=== PATIENT | male | born 1965 | race African-American/Black ===

== ENCOUNTER 2020-06-04 22:02 | Observation (INO) | payer OTHER ==
[2020-06-04 23:06] LABS: Hematocrit 51.5 % (35.5-45.6); Hemoglobin 17.3 gm/dl (11.8-15.2); Mean Corpuscular HGB Conc 34 % (32-34); Mean Corpuscular Volume 95 fl (84-94); Platelet Count 197 K/mm3 (140-440); Red Cell Distribution Width 13.2 % (13.2-15.2)
[2020-06-04 23:27] LABS: Blood Urea Nitrogen 16 mg/dL (9-20); Calcium 9.2 mg/dL (8.4-10.2); Hemolysis Index 11
[2020-06-04 23:34] LABS: BUN/Creatinine Ratio 23
[2020-06-05] MEDS ORDERED: SODIUM CHLORIDE 0.9% 1000 ML 1,000 ML IV ONE (00:55)
[2020-06-05] MEDS ORDERED: ONDANSETRON 4 MG/2 ML INJ IV ONE (00:55)
--- NOTE | 2020-06-05 00:58 | Emergency Department Report ---
ED N/V/D HPI - General Chief complaint: Nausea/Vomiting/Diarrhea Stated complaint: VOMITING DIARRHEA PUI?: No Time Seen by Provider: 06/05/20 00:54 Source: patient Mode of arrival: Ambulatory Limitations: No Limitations - History of Present Illness Initial comments: Patient is a 55-year-old male that presents emergency room with complaints of nausea, vomiting, diarrhea. Patient states he ate fish today and became acutely ill approximately 4 hours afterwards. Patient states his symptoms been going on for 2 hours. Patient states he feels like his mouth is dry. Patient denies abdominal pain. Patient denies fever and chills. Patient denies headache. Patient denies blurry vision. Patient denies blood in the vomitus. Patient denies blood in his stool. Patient denies recent travel. Patient denies recent international travel. Patient denies exposure to the novel coronavirus. Patient denies sick contacts. Patient denies fever and chills. Patient denies cough. Patient denies coming in contact with anybody with symptoms of the novel coronavirus. MD complaint: nausea, vomiting, diarrhea -: Sudden Description of Vomiting: watery Description of Diarrhea: water Associated Abdominal Pain: No Radiation: none Severity: severe Pain Scale: 0 Consistency: constant Improves with: rest Worsens with: eating, bowel movement Associated Symptoms: nausea/vomiting - Related Data Allergies Allergy/AdvReac Type Severity Reaction Status Date / Time No Known Allergies Allergy Unverified 06/04/20 22:05 ED Review of Systems ROS: Stated complaint: VOMITING DIARRHEA Other details as noted in HPI Constitutional: denies: chills, fever Eyes: denies: eye pain, eye discharge, vision change ENT: denies: ear pain, throat pain Respiratory: denies: cough, shortness of breath, wheezing Cardiovascular: denies: chest pain, palpitations Endocrine: no symptoms reported Gastrointestinal: nausea, vomiting, diarrhea. denies: abdominal pain Genitourinary: denies: urgency, dysuria Musculoskeletal: denies: back pain, joint swelling, arthralgia Skin: denies: rash, lesions Neurological: denies: headache, weakness, paresthesias Psychiatric: denies: anxiety, depression Hematological/Lymphatic: denies: easy bleeding, easy bruising ED Past Medical Hx - Past Medical History Previous Medical History?: No - Surgical History Past Surgical History?: Yes Additional Surgical History: ear - Family History Family history: no significant - Social History Smoking Status: Current Every Day Smoker Substance Use Type: Alcohol ED Physical Exam - General Limitations: No Limitations General appearance: alert, in no apparent distress - Head Head exam: Present: atraumatic, normocephalic - Eye Eye exam: Present: normal appearance - ENT ENT exam: Present: mucous membranes dry - Neck Neck exam: Present: normal inspection - Respiratory Respiratory exam: Present: normal lung sounds bilaterally. Absent: respiratory distress - Cardiovascular Cardiovascular Exam: Present: regular rate, normal rhythm. Absent: systolic murmur, diastolic murmur, rubs, gallop - GI/Abdominal GI/Abdominal exam: Present: soft, normal bowel sounds - Rectal Rectal exam: Present: deferred - Extremities Exam Extremities exam: Present: normal inspection - Back Exam Back exam: Present: normal inspection - Neurological Exam Neurological exam: Present: alert, oriented X3 - Psychiatric Psychiatric exam: Present: normal affect, normal mood - Skin Skin exam: Present: warm, dry, intact, normal color. Absent: rash ED Course Vital Signs 06/04/20 06/05/20 06/05/20 22:08 01:00 01:30 Temperature 97.9 F Pulse Rate 95 H 78 71 Respiratory 18 25 H 26 H Rate Blood Pressure 117/83 117/74 Blood Pressure 122/93 [Right] O2 Sat by Pulse 99 95 Oximetry 06/05/20 06/05/20 02:00 02:30 Temperature Pulse Rate 76 74 Respiratory 25 H 23 Rate Blood Pressure 114/74 106/78 Blood Pressure [Right] O2 Sat by Pulse 98 96 Oximetry - Reevaluation(s) Reevaluation #1: Patient states he is feeling better. Patient denies nausea vomiting at this time. CT is pending. 06/05/20 02:16 Reevaluation #2: Patient states she is feeling better. 06/05/20 03:05 Reevaluation #3: I discussed all results with patient. I discussed plan of care with patient. Patient agrees with plan of care and admission. Patient to be admitted to the hospitalist service. 06/05/20 03:28 - Consultations Consultation #1: I discussed case with general surgery, Dr. Fuentes. Dr. Fuentes states admit the patient to the hospital service and will see him in the morning. 06/05/20 03:23 Consultation #2: Hospitalist consulted for admission. Hospitalist to admit patient. 06/05/20 03:26 ED Medical Decision Making - Lab Data Result diagrams: 06/04/20 22:41 06/04/20 22:41 - Radiology Data Radiology results: report reviewed CT ABDOMEN AND PELVIS WITH IV CONTRAST INDICATION: Nausea, vomiting and diarrhea TECHNIQUE: Following the administration of intravenous contrast, multiple axial CT images of the abdomen and pelvis were acquired. Sagittal and coronal reformats were obtained. All CT performed at this facility utilize dose reduction techniques including automated exposure control, iterative reconstruction and weight based dosing when appropriate to reduce patient radiation dose to as low as reasonably achievable. COMPARISON: None FINDINGS: Limited imaging of the bilateral lung bases demonstrates no acute abnormality. ABDOMEN: There is suspected mild thickening and enhancement of the gallbladder wall. No pericholecystic fluid is identified. The liver, stomach, pancreas, spleen, bilateral adrenal glands and bilateral kidneys show no evidence of acute abnormality. Bilateral renal cysts are noted. The abdominal aorta is normal in caliber. There is no evidence of bowel obstruction or free fluid. The appendix is not clearly identified, but no focal pericecal inflammatory changes are seen. PELVIS: No free fluid is seen within the pelvis. The urinary bladder appears normal. BONES AND SOFT TISSUES: No acute bony abnormality is visualized. Soft tissue structures appear grossly normal. IMPRESSION: 1. Possible mild wall thickening and enhancement of the gallbladder wall. Please correlate with patient's clinical symptoms and laboratory values to assess for possible mild cholecystitis. 2. Bilateral renal cysts. - Medical Decision Making Patient is a 55-year-old male that presents emergency room with nausea, vomiting, diarrhea. Patient given fluids and Zofran. Patient symptoms improved. Patient had labs done which showed a elevated WBC. Because the WBC was 17,000, the patient had a CT scan of the abdomen. Patient CT scan of the abdomen shows a possible early cholecystitis. I discussed the case with general surgery general surgery recommends admission and he will see the patient in morning. Patient admitted to the hospital service for further evaluation treatment. - Differential Diagnosis Diarrhea, nausea, vomiting, gastroenteritis, food toxicity, Critical Care Time: Yes Critical care time in (mins) excluding proc time.: 35 Critical care attestation.: If time is entered above; I have spent that time in minutes in the direct care of this critically ill patient, excluding procedure time. Critical Care Time: 35 minutes. ED Disposition Clinical Impression: Nausea, vomiting and diarrhea, Cholecystitis Disposition: OP ADMIT IP TO THIS HOSP Is pt being admited?: Yes Does the pt Need Aspirin: No Condition: Critical Time of Disposition: 03:36
[2020-06-05 01:04] LABS: Alanine Aminotransferase 21 units/L (7-56); Albumin 4.2 g/dL (3.9-5)
[2020-06-05 01:47] LABS: Bilirubin,Direct < 0.2 mg/dL (0-0.2)
--- NOTE | 2020-06-05 03:16 | Cat Scan Report ---
CT ABDOMEN AND PELVIS WITH IV CONTRAST INDICATION: Nausea, vomiting and diarrhea TECHNIQUE: Following the administration of intravenous contrast, multiple axial CT images of the abdo men and pelvis were acquired. Sagittal and coronal reformats were obtained. All CT performed at this facility utilize dose reduction techniques including automated exposure control, iterative reconstru ction and weight based dosing when appropriate to reduce patient radiation dose to as low as reasonab ly achievable. COMPARISON: None FINDINGS: Limited imaging of the bilateral lung bases demonstrates no acute abnormality. ABDOMEN: There is suspected mild thickening and enhancement of the gallbladder wall. No pericholecystic fluid is identified. The liver, stomach, pancreas, spleen, bilateral adrenal glands and bilateral kidneys s how no evidence of acute abnormality. Bilateral renal cysts are noted. The abdominal aorta is normal in caliber. There is no evidence of bowel obstruction or free fluid. The appendix is not clearly iden tified, but no focal pericecal inflammatory changes are seen. PELVIS: No free fluid is seen within the pelvis. The urinary bladder appears normal. BONES AND SOFT TISSUES: No acute bony abnormality is visualized. Soft tissue structures appear grossl y normal. IMPRESSION: 1. Possible mild wall thickening and enhancement of the gallbladder wall. Please correlate with patie nt's clinical symptoms and laboratory values to assess for possible mild cholecystitis. 2. Bilateral renal cysts. Signer Name: Tricia Dorado MD Signed: 06/05/2020 3:12 AM Workstation Name: [id number]
[2020-06-05 03:57] LABS: Band Neutrophils # (Manual) 0.4 K/mm3; Total Cells Counted 100
[2020-06-05] MEDS ORDERED: ONDANSETRON 4 MG/2 ML INJ IV PRN (03:57)
[2020-06-05] MEDS ORDERED: DOCUSATE SODIUM 100 MG CAP PO PRN (03:57)
[2020-06-05] MEDS ORDERED: ACETAMINOPHEN 325 MG TAB PO PRN (03:57)
[2020-06-05 03:58] LABS: Platelet Estimate Consistent w Auto; RBC Morphology Normal
[2020-06-05] MEDS ORDERED: SODIUM CHLORIDE 0.9% 1000 ML 1,000 ML IV SCH (04:00)
[2020-06-05] MEDS ORDERED: hydrALAZINE 20 MG/1 ML INJ IV PRN (04:03)
[2020-06-05] MEDS: PIPERACILLIN/TAZOBACTAM 3.375 3.375 GM/50 ML BAG IV SCH ×3 (04:29→22:06)
--- NOTE | 2020-06-05 05:27 | History and Physical Report ---
History of Present Illness Date of examination: 06/05/20 Date of admission: 06/05/20 03:36 Chief complaint: nausea Vomiting Abdominal pain and diarrhea History of present illness: Patient is a 55-year-old male seen at bedside in ED. He came with chief complaints nausea, vomiting, diarrhea, abdominal pain. Patient reports his symptoms started after eating fish. On assessment, Patient admits alcohol and tobacco use and feeling nauseous. He denies illicit drug use and abdominal pain. Patient also denies fever and chills and headache. Patient denies blurry vision . Reviewed lb, mar, and vital signs. ED Work up shows; WBC 17.7, hemoglobin 17.3, sodium 142, potassium 3.[address] of the abdomen/pelvis-showed: 1. Possible mild wall thickening and enhancement of the gallbladder wall- possible mild cholecystitis 2. Bilateral renal cysts. Past History Past Medical History: No medical history Past Surgical History: No surgical history Social history: smoking, alcohol abuse Medications and Allergies Allergies Allergy/AdvReac Type Severity Reaction Status Date / Time No Known Allergies Allergy Unverified 06/04/20 22:05 Active Meds: Active Medications Acetaminophen (Acetaminophen 325 Mg Tab) 650 mg PO Q4H PRN PRN Reason: Pain MILD(1-3)/Fever >100.5/WHITNEY Docusate Sodium (Docusate Sodium 100 Mg Cap) 100 mg PO BID PRN PRN Reason: Constipation Enoxaparin Sodium (Enoxaparin 40 Mg/0.4 Ml Inj) 40 mg SUB-Q QDAY LUPE; Protocol Famotidine (Famotidine 20 Mg/2 Ml Inj) 20 mg IV BID [facility] Hydralazine HCl (Hydralazine 20 Mg/1 Ml Inj) 5 mg IV Q4H PRN PRN Reason: Hypertension Sodium Chloride (Nacl 0.9% 1000 Ml) 1,000 mls @ 100 mls/hr IV DIRECT LUPE Piperacillin Sod/Tazobactam Sod (Zosyn/Ns 3.375gm/50ml) 3.375 gm in 50 mls @ 100 mls/hr IV Q8HR LUPE; Protocol Last Admin: 06/05/20 04:29 Dose: 100 mls/hr Documented by: Metoclopramide HCl (Metoclopramide 10 Mg/2 Ml Inj) 5 mg IV ACHS [facility] Ondansetron HCl (Ondansetron 4 Mg/2 Ml Inj) 4 mg IV Q8H PRN PRN Reason: Nausea And Vomiting Sodium Chloride (Sodium Chloride 0.9% 10 Ml Flush Syringe) 10 ml IV BID LUPE Sodium Chloride (Sodium Chloride 0.9% 10 Ml Flush Syringe) 10 ml IV PRN PRN PRN Reason: LINE FLUSH Review of Systems Constitutional: poor appetite, other (abdominal pain) Ears, nose, mouth and throat: no epistaxis Cardiovascular: no edema, no claudication Respiratory: no wheezing, no pleurisy Gastrointestinal: abdominal pain, nausea, vomiting, diarrhea Genitourinary Male: no hematuria Rectal: no pain Musculoskeletal: no neck stiffness Integumentary: no redness, no wounds Neurological: parathesias, no transient paralysis Psychiatric: anxiety Endocrine: no thyroid mass Hematologic/Lymphatic: no easy bruising Allergic/Immunologic: no anaphylaxis Exam - Constitutional Vitals: Temp Pulse Resp BP Pulse Ox 97.9 F 60 23 115/76 97 06/04/20 22:08 06/05/20 05:00 06/05/20 05:00 06/05/20 05:00 06/05/20 05:00 General appearance: Present: mild distress, well-nourished - EENT Eyes: Present: PERRL ENT: hearing intact, clear oral mucosa - Neck Neck: Present: supple, normal ROM. Absent: rigidity - Respiratory Respiratory effort: normal Respiratory: bilateral: CTA - Cardiovascular Heart rate: 60 Heart Sounds: Present: S1 & S2. Absent: rub, click - Extremities Extremities: pulses symmetrical, No edema Peripheral Pulses: within normal limits - Abdominal General gastrointestinal: Present: soft, tender, non-distended, normal bowel sounds Localized gastrointestinal: tender: RLQ, LLQ Male genitourinary: Present: normal - Integumentary Integumentary: Present: clear, warm, dry - Musculoskeletal Musculoskeletal: gait normal, strength equal bilaterally - Psychiatric Psychiatric: appropriate mood/affect, intact judgment & insight - Neurologic Neurologic: CNII-XII intact, moves all extremities - Allied Health Allied health notes reviewed: nursing Results - Labs CBC & Chem 7: 06/04/20 22:41 06/04/20 22:41 Labs: Abnormal lab results 06/04/20 06/04/20 Range/Units 22:41 22:41 WBC 17.7 H (4.5-11.0) K/mm3 RBC 5.40 H (3.65-5.03) M/mm3 Hgb 17.3 H (11.8-15.2) gm/dl Hct 51.5 H (35.5-45.6) % MCV 95 H (84-94) fl Seg Neuts % (Manual) 86.0 H (40.0-70.0) % Lymphocytes % (Manual) 9.0 L (13.4-35.0) % Seg Neutrophils # Man 15.2 H (1.8-7.7) K/mm3 Creatinine 0.7 L (0.8-1.3) mg/dL Assessment and Plan - Patient Problems (1) Cholecystitis Current Visit: Yes Status: Acute Plan to address problem: General surgeon consult Pain management PRN (2) Nausea, vomiting and diarrhea Current Visit: Yes Status: Acute Plan to address problem: Continue anti-emetic Keep NPO and Continue IV hydration (3) Leukocytosis (leucocytosis) Current Visit: Yes Status: Acute Plan to address problem: ? [id number] infection-CT of the abdomen-positive for cholycystitis Blood culture-follow up with result urinalysis ordered Empiric abx with zosyn-general surgeon consulted (4) Polycythemia Current Visit: Yes Status: Acute Plan to address problem: ? cause-tobacco use/COPD Monitor H/H-antipletelet with low dose ASA patient advised to quit tobacco use Will monitor blood pressure level (5) Tobacco abuse Current Visit: Yes Status: Acute Plan to address problem: Patient admits tobacco use Discussed tobacco use cessation Cardiovascular and neoplasm syndrome of tobacco use explained to patient (6) DVT prophylaxis Current Visit: Yes Status: Acute Plan to address problem: Lovenox
[2020-06-05] MEDS: METOCLOPRAMIDE 10 MG/2 ML INJ IV SCH ×4 (07:36→22:06)
[2020-06-05] MEDS ORDERED: ASPIRIN EC 81 MG TAB PO SCH (10:00)
[2020-06-05] MEDS ORDERED: ENOXAPARIN 40 MG/0.4 ML INJ SUB-Q SCH (10:00)
[2020-06-05] MEDS ORDERED: FAMOTIDINE 20 MG/2 ML INJ IV SCH (10:00)
[2020-06-05] MEDS: FAMOTIDINE 20 MG/2 ML INJ IV SCH ×2 (10:02→22:06)
--- NOTE | 2020-06-05 10:09 | Ultrasound Report ---
LIMITED RUQ ABDOMINAL ULTRASOUND INDICATION: ABD PAIN. COMPARISON: CT abdomen pelvis performed earlier today. FINDINGS: Pancreas: Visualized portions show no significant abnormality. Abdominal Aorta: No significant abnormality. IVC: No significant abnormality. Liver: The liver measures 12.8 cm in length. No significant abnormality. Normal hepatopedal blood fl ow in the main portal vein. Gallbladder: The gallbladder is normal size and contour with no evidence for stones or sludge. The ga llbladder wall is borderline thickened measuring 3.1 mm.. Bile ducts: No significant abnormality. Common bile duct measures 2.3 mm. Right kidney: No significant abnormality visualized. Free fluid: None. Additional Findings: None. IMPRESSION: No acute abnormality is appreciated. No evidence for cholelithiasis or biliary dilatation. Signer Name: Chuy Lea Jr, MD Signed: 06/05/2020 10:05 AM Workstation Name: [id number]
--- NOTE | 2020-06-05 14:52 | Consultation ---
History of Present Illness Consult date: 06/05/20 Reason for consult: abdominal pain - History of present illness History of present illness: 55 yo male with abd pain (upper abd) assoc with n/v/diarrhea for one day following meal of oysters cooked at home. CT last night with vague single GB abnormality (thickened wall but no fluid/stones. I ordered u/s today which is normal-- no stones, mild thick wall, no fluid No hx GI dz; no one else ate oysters at same time No hx sick contacts/Covid risk/etc Pt feels "perfectly normal" right now and wants to go home. Past History Past Medical History: No medical history Past Surgical History: No surgical history Social history: smoking, alcohol abuse Medications and Allergies Allergies Allergy/AdvReac Type Severity Reaction Status Date / Time No Known Allergies Allergy Unverified 06/04/20 22:05 Active Meds: Active Medications Acetaminophen (Acetaminophen 325 Mg Tab) 650 mg PO Q4H PRN PRN Reason: Pain MILD(1-3)/Fever >100.5/WHITNEY Docusate Sodium (Docusate Sodium 100 Mg Cap) 100 mg PO BID PRN PRN Reason: Constipation Famotidine (Famotidine 20 Mg/2 Ml Inj) 20 mg IV BID [facility] Last Admin: 06/05/20 10:02 Dose: 20 mg Documented by: Hydralazine HCl (Hydralazine 20 Mg/1 Ml Inj) 5 mg IV Q4H PRN PRN Reason: Hypertension Sodium Chloride (Nacl 0.9% 1000 Ml) 1,000 mls @ 100 mls/hr IV DIRECT LUPE Piperacillin Sod/Tazobactam Sod (Zosyn/Ns 3.375gm/50ml) 3.375 gm in 50 mls @ 100 mls/hr IV Q8HR [facility]; Protocol Last Admin: 06/05/20 13:46 Dose: 100 mls/hr Documented by: Metoclopramide HCl (Metoclopramide 10 Mg/2 Ml Inj) 5 mg IV ACHS [facility] [place] Last Admin: 06/05/20 13:44 Dose: 5 mg Documented by: Ondansetron HCl (Ondansetron 4 Mg/2 Ml Inj) 4 mg IV Q8H PRN PRN Reason: Nausea And Vomiting Sodium Chloride (Sodium Chloride 0.9% 10 Ml Flush Syringe) 10 ml IV BID [facility] [place] Last Admin: 06/05/20 10:02 Dose: 10 ml Documented by: Sodium Chloride (Sodium Chloride 0.9% 10 Ml Flush Syringe) 10 ml IV PRN PRN PRN Reason: LINE FLUSH Exam Vital Signs Temp Pulse Resp BP Pulse Ox 97.9 F 95 H 18 122/93 99 06/04/20 22:08 06/04/20 22:08 06/04/20 22:08 06/04/20 22:08 06/04/20 22:08 - General physical appearance Positive: well developed, well nourished, no distress - Abdomen Abdomen: Present: soft, bowel sounds normal. Absent: tender, distended, masses, rebound, guarding, rigid, wound, surgical scars Results - Labs 06/04/20 22:41 06/04/20 22:41 Abnormal lab results 06/04/20 06/04/20 Range/Units 22:41 22:41 WBC 17.7 H (4.5-11.0) K/mm3 RBC 5.40 H (3.65-5.03) M/mm3 Hgb 17.3 H (11.8-15.2) gm/dl Hct 51.5 H (35.5-45.6) % MCV 95 H (84-94) fl Seg Neuts % (Manual) 86.0 H (40.0-70.0) % Lymphocytes % (Manual) 9.0 L (13.4-35.0) % Seg Neutrophils # Man 15.2 H (1.8-7.7) K/mm3 Creatinine 0.7 L (0.8-1.3) mg/dL Diabetes panel 06/04/20 06/04/20 Range/Units 22:41 22:41 Sodium 142 (137-145) mmol/L Potassium 3.9 (3.6-5.0) mmol/L Chloride 103.6 (98-107) mmol/L Carbon Dioxide 24 (22-30) mmol/L BUN 16 (9-20) mg/dL Creatinine 0.7 L (0.8-1.3) mg/dL Glucose 92 (75-100) mg/dL Calcium 9.2 (8.4-10.2) mg/dL AST 29 (5-40) units/L ALT 21 (7-56) units/L Alkaline Phosphatase 53 (35-129) units/L Total Protein 7.1 (6.3-8.2) g/dL Albumin 4.2 (3.9-5) g/dL Calcium panel 06/04/20 06/04/20 Range/Units 22:41 22:41 Calcium 9.2 (8.4-10.2) mg/dL Albumin 4.2 (3.9-5) g/dL Pituitary panel 06/04/20 Range/Units 22:41 Sodium 142 (137-145) mmol/L Potassium 3.9 (3.6-5.0) mmol/L Chloride 103.6 (98-107) mmol/L Carbon Dioxide 24 (22-30) mmol/L BUN 16 (9-20) mg/dL Creatinine 0.7 L (0.8-1.3) mg/dL Glucose 92 (75-100) mg/dL Calcium 9.2 (8.4-10.2) mg/dL Adrenal panel 06/04/20 06/04/20 Range/Units 22:41 22:41 Sodium 142 (137-145) mmol/L Potassium 3.9 (3.6-5.0) mmol/L Chloride 103.6 (98-107) mmol/L Carbon Dioxide 24 (22-30) mmol/L BUN 16 (9-20) mg/dL Creatinine 0.7 L (0.8-1.3) mg/dL Glucose 92 (75-100) mg/dL Calcium 9.2 (8.4-10.2) mg/dL Total Bilirubin 0.20 (0.1-1.2) mg/dL AST 29 (5-40) units/L ALT 21 (7-56) units/L Alkaline Phosphatase 53 (35-129) units/L Total Protein 7.1 (6.3-8.2) g/dL Albumin 4.2 (3.9-5) g/dL Assessment and Plan Abdominal pain/nausea/vomiting/diarrhea/leukocytosis--- unclear etiology but unlikely acute cholecystitis in light of u/s result. Rec GI consult (ordered- Rn aware to call them). Possibly gastroenteritis/food poisoning/etc. Could check HIDA if pt has recurrent pain in epig/RUQ. Start clears- adv to reg tomorrow if tolerating. Monitor WBC No evid surgical disease at this time.
--- NOTE | 2020-06-05 19:09 | Event Note ---
Date: 06/05/20 Patient was admitted early this morning with nausea vomiting abdominal pain CT abdomen questionable cholecystitis, surgery Dr. Fuentes evaluated the patient patient symptoms completely resolved Abdominal ultrasound, no gallbladder abnormality, surgeon does not feel that patient has gallbladder disease Advised to advance diet as tolerated, he discussed with GI for consultation We will closely monitor the patient overnight, and discharge tomorrow if stable
[2020-06-06 05:23] LABS: Basophils % (Auto) 0.4 % (0.0-1.8); Eosinophils # (Auto) 0.4 K/mm3 (0.0-0.4); Eosinophils % (Auto) 5.4 % (0.0-4.3); Hematocrit 41.3 % (35.5-45.6); Hemoglobin 14.1 gm/dl (11.8-15.2); Lymphocytes # (Auto) 2.1 K/mm3 (1.2-5.4); Lymphocytes % (Auto) 31.8 % (13.4-35.0); Mean Corpuscular HGB Conc 34 % (32-34); Mean Corpuscular Volume 95 fl (84-94); Monocytes # (Auto) 0.4 K/mm3 (0.0-0.8); Monocytes % (Auto) 6.1 % (0.0-7.3); Platelet Count 161 K/mm3 (140-440); Red Blood Count 4.37 M/mm3 (3.65-5.03); Red Cell Distribution Width 13.2 % (13.2-15.2)
[2020-06-06] MEDS: PIPERACILLIN/TAZOBACTAM 3.375 3.375 GM/50 ML BAG IV SCH (06:30)
[2020-06-06] MEDS: METOCLOPRAMIDE 10 MG/2 ML INJ IV SCH ×2 (07:34→11:08)
--- NOTE | 2020-06-06 10:47 | Consultation ---
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 He was well until he ate live oysters. Several hours later, he developed nausea, vomiting, and diarrhea. Symptoms lasted several hours and have resolved. He denies any prior similar symptoms. Bowel movements are usually regular on a daily basis. He denies GI bleeding. He denies any abdominal pain. Here, patient had a CT scan which showed mild edema of the gallbladder and surgical consult was performed which showed a normal gallbladder ultrasound. Patient is on no medications, and they were reviewed. Past History Past Medical History: No medical history Past Surgical History: No surgical history Social history: smoking (7 cigarettes/d), alcohol abuse (occ beer) Family history: no significant family history Medications and Allergies Allergies Allergy/AdvReac Type Severity Reaction Status Date / Time No Known Allergies Allergy Unverified 06/04/20 22:05 Active Meds: Active Medications Acetaminophen (Acetaminophen 325 Mg Tab) 650 mg PO Q4H PRN PRN Reason: Pain MILD(1-3)/Fever >100.5/WHITNEY Docusate Sodium (Docusate Sodium 100 Mg Cap) 100 mg PO BID PRN PRN Reason: Constipation Famotidine (Famotidine 20 Mg/2 Ml Inj) 20 mg IV BID [facility] Last Admin: 06/05/20 22:06 Dose: 20 mg Documented by: Hydralazine HCl (Hydralazine 20 Mg/1 Ml Inj) 5 mg IV Q4H PRN PRN Reason: Hypertension Metoclopramide HCl (Metoclopramide 10 Mg/2 Ml Inj) 5 mg IV ACHS [facility] Last Admin: 06/06/20 07:34 Dose: 5 mg Documented by: Ondansetron HCl (Ondansetron 4 Mg/2 Ml Inj) 4 mg IV Q8H PRN PRN Reason: Nausea And Vomiting Sodium Chloride (Sodium Chloride 0.9% 10 Ml Flush Syringe) 10 ml IV BID [facility] Last Admin: 06/06/20 10:10 Dose: 10 ml Documented by: Sodium Chloride (Sodium Chloride 0.9% 10 Ml Flush Syringe) 10 ml IV PRN PRN PRN Reason: LINE FLUSH Last Admin: 06/05/20 22:06 Dose: 10 ml Documented by: Review of Systems All systems: negative (as noted in HPI) Exam - Constitutional Vitals: Temp Pulse Resp BP Pulse Ox 98 F 55 L 17 122/73 96 06/06/20 07:43 06/06/20 09:00 06/06/20 09:00 06/06/20 09:00 06/06/20 09:00 General appearance: Present: no acute distress - EENT Eyes: Present: PERRL, EOM intact ENT: hearing intact - Respiratory Respiratory effort: normal Respiratory: bilateral: CTA - Cardiovascular Rhythm: regular Heart Sounds: Present: S1 & S2 - Extremities Extremities: No edema - Abdominal General gastrointestinal: Present: soft, non-tender Results - Labs CBC & Chem 7: 06/06/20 04:56 06/04/20 22:41 Labs: Abnormal lab results 06/06/20 Range/Units 04:56 MCV 95 H (84-94) fl Eos % (Auto) 5.4 H (0.0-4.3) % - Imaging and Cardiology CT scan - abdomen: report reviewed Assessment and Plan 1. N/V/D -most consistent with food poisoning. Symptoms resolved. No further GI evaluation warranted. Patient is currently tolerating diet well. - okay to discharge from GI standpoint.
[2020-06-06] MEDS: FAMOTIDINE 20 MG/2 ML INJ IV SCH (11:00)
--- NOTE | 2020-06-06 12:47 | Discharge Summary ---
Providers - Providers Date of Admission: 06/05/20 03:36 Date of discharge: 06/06/20 Attending physician: BART COYLE 06/05/20 03:37 Consult to Physician [CONS] Routine Comment: Dr. Loyd spoke with Dr. Carrasquillo @ [phone] Consulting Provider: DEJA CARRASQUILLO Physician Instructions: Reason For Exam: osvaldo Primary care physician: BAR ASSISTANT Hospitalization Condition: Stable Hospital course: --Acute gastroenteritis /probably secondary to food poisoning Current Visit: Yes Status: Acute Plan to address problem: Resolved --? Cholecystitis Current Visit: Yes Status: Acute Plan to address problem: General surgeon and GI evaluated No evidence of acute cholecystitis --Leukocytosis (leucocytosis) Current Visit: Yes Status: Acute Plan to address problem: Resolved --Polycythemia Current Visit: Yes Status: Acute Plan to address problem: Improved --Tobacco abuse Current Visit: Yes Status: Acute Plan to address problem: Smoking cessation Nicotine patch if needed --DVT prophylaxis Current Visit: Yes Status: Acute Plan to address problem: Received Lovenox during hospital stay Disposition: DC-01 TO HOME OR SELFCARE Time spent for discharge: 32min Core Measure Documentation - Palliative Care Palliative Care/ Comfort Measures: Not Applicable - Core Measures Any of the following diagnoses?: none Exam - Constitutional Vitals: Temp Pulse Resp BP Pulse Ox 98 F 63 21 117/75 96 06/06/20 07:43 06/06/20 12:00 06/06/20 12:00 06/06/20 12:00 06/06/20 12:00 General appearance: Present: no acute distress, well-nourished - EENT Eyes: Present: PERRL, EOM intact - Neck Neck: Present: supple, normal ROM - Respiratory Respiratory effort: normal Respiratory: bilateral: diminished, negative: rales, rhonchi, wheezing - Cardiovascular Rhythm: regular Heart Sounds: Present: S1 & S2 - Extremities Extremities: no ischemia, No edema - Abdominal General gastrointestinal: Present: soft, non-tender, non-distended, normal bowel sounds - Integumentary Integumentary: Present: clear, warm - Musculoskeletal Musculoskeletal: strength equal bilaterally - Psychiatric Psychiatric: appropriate mood/affect, cooperative - Neurologic Neurologic: moves all extremities Plan Activity: no restrictions Diet: regular Special Instructions: smoking cessation Additional Instructions: If you have worsening symptoms contact MD or go to emergency room. Diet as tolerated. Advised smoking cessation Follow up with: PRIMARY CARE,MD [Primary Care Provider] - 7 Days Prescriptions: Pantoprazole [Protonix TAB] 20 mg PO QDAY #10 tablet. Ondansetron [Zofran ODT TAB] 8 mg PO Q8HR PRN #15 tab.rapdis PRN Reason: Nausea And Vomiting
--- NOTE | 2020-06-06 14:08 | Progress Note ---
Assessment and Plan d/w Dr James of GI-- pt ok to go home; d/c summary in chart by hospitalist Subjective Date of service: 06/06/20 Patient Reports: Positive: no new complaints Objective Vital Signs - 12hr 06/06/20 06/06/20 06/06/20 02:49 02:50 06:32 Temperature Pulse Rate 65 56 L Respiratory 17 16 Rate Blood Pressure 132/92 119/69 Blood Pressure 132/92 119/59 [Right] O2 Sat by Pulse 85 98 98 Oximetry 06/06/20 06/06/20 06/06/20 07:35 07:43 08:00 Temperature 98 F Pulse Rate 60 56 L Respiratory 18 20 Rate Blood Pressure 116/70 Blood Pressure 133/69 [Right] O2 Sat by Pulse 85 96 95 Oximetry 06/06/20 06/06/20 06/06/20 08:30 09:00 09:30 Temperature Pulse Rate 60 55 L 67 Respiratory 18 17 16 Rate Blood Pressure 116/70 122/73 116/70 Blood Pressure [Right] O2 Sat by Pulse 97 96 96 Oximetry 06/06/20 06/06/20 06/06/20 10:00 10:34 11:00 Temperature Pulse Rate 60 Respiratory 16 Rate Blood Pressure 116/70 122/73 107/70 Blood Pressure [Right] O2 Sat by Pulse 97 63 L 96 Oximetry 06/06/20 06/06/20 06/06/20 11:30 12:00 12:30 Temperature Pulse Rate 56 L 63 54 L Respiratory 17 21 18 Rate Blood Pressure 107/70 117/75 117/75 Blood Pressure [Right] O2 Sat by Pulse 96 96 97 Oximetry 06/06/20 13:02 Temperature Pulse Rate Respiratory Rate Blood Pressure 117/75 Blood Pressure [Right] O2 Sat by Pulse 97 Oximetry - Labs 06/06/20 04:56 06/04/20 22:41
[2020-06-06 14:53] VITALS: BP 113/73
== END 2020-06-06 12:50 | disposition home or self-care (01) ==
LOC: ED 22:02 → 3A 06-05 03:36
PROVIDERS: ADMIT Internal Medicine Geriatric Medicine; ATTEND Internal Medicine
DX: K81.9 Cholecystitis, unspecified (principal); K52.9 Noninfective gastroenteritis and colitis, unspecified; D72.829 Elevated white blood cell count, unspecified; D75.1 Secondary polycythemia; F17.210 Nicotine dependence, cigarettes, uncomplicated
CPT/HCPCS: 36415; 74177; 76705; 80048; 80076; 83690; 85007; 85025; 85027; 96361; 96365; 96366; 96375; 96376; 99291; G0378; J2405; J2543; J2765; J7030; Q9967

== ENCOUNTER 2021-08-24 01:40 | Emergency (ER) | payer OTHER ==
[2021-08-24] MEDS ORDERED: FAMOTIDINE 20 MG/2 ML INJ IV ONE (02:42)
[2021-08-24] MEDS ORDERED: SODIUM CHLORIDE 0.9% 1000 ML 1,000 ML IV ONE (02:42)
[2021-08-24] MEDS ORDERED: ONDANSETRON 4 MG/2 ML INJ IV ONE ×2 (02:42→03:51)
[2021-08-24 03:21] LABS: Alanine Aminotransferase 18 units/L (7-56); Albumin 4.5 g/dL (3.9-5); BUN/Creatinine Ratio 20; Blood Urea Nitrogen 16 mg/dL (9-20); Calcium 8.9 mg/dL (8.4-10.2); Hemolysis Index 9
[2021-08-24 03:41] LABS: Hemoglobin 17.3 gm/dl (11.8-15.2); Mean Corpuscular HGB Conc 33 % (32-34); Mean Corpuscular Volume 95 fl (84-94); Platelet Count 197 K/mm3 (140-440); Red Blood Count 5.58 M/mm3 (3.65-5.03); Red Cell Distribution Width 13.6 % (13.2-15.2)
[2021-08-24] MEDS ORDERED: MORPHINE 4 MG/1 ML INJ IV ONE (03:51)
[2021-08-24 04:19] LABS: RBC Morphology Normal; Total Cells Counted 100
--- NOTE | 2021-08-24 04:35 | Emergency Department Report ---
ED N/V/D HPI - General Chief complaint: Nausea/Vomiting/Diarrhea Stated complaint: FOOD POISON Source: patient, family Mode of arrival: Ambulatory Limitations: Other - History of Present Illness Initial comments: Patient is a 56-year-old [place] male with history of alcohol abuse who presents to the ED with complaint of acute onset persistent intractable nausea and vomiting with mild epigastric pain after eating dinner with alcohol consumption about 6 hours ago. Patient's family stated that the patient has had multiple vomiting episodes with mild epigastric pain. Patient denies chest pain, shortness of breath, fever, chills, dysuria, urinary frequency and urgency , hematemesis, hemoptysis, cough, sore throat, headache, dizziness or syncope. MD complaint: nausea, vomiting, abdominal pain -: Sudden, hour(s) (6) Description of Vomiting: food contents, watery, bilious Associated Abdominal Pain: Yes (diffuse) Location: diffuse Radiation: none Severity: severe Pain Scale: 5 Quality: cramping, dull Consistency: constant Improves with: none Worsens with: eating, vomiting Context: possible food poisoning Associated Symptoms: denies other symptoms, loss of appetite, malaise, nausea/vomiting. denies: myalgias, chest pain, diaphoresis, fever/chills, headaches, rash, dysuria, shortness of breath, syncope, weakness - Related Data Previous Rx's Medication Instructions Recorded Last Taken Type Ondansetron [Zofran ODT TAB] 8 mg PO Q8HR PRN #15 tab.rapdis 06/06/20 Unknown Rx Pantoprazole [Protonix TAB] 20 mg PO QDAY #10 tablet. 06/06/20 Unknown Rx Dicyclomine [Bentyl] 20 mg PO Q6H PRN #30 tablet 08/24/21 Unknown Rx Famotidine [Pepcid] 20 mg PO Q12H #30 tablet 08/24/21 Unknown Rx Ondansetron [Zofran Odt] 4 mg PO Q6HR PRN #20 tab.rapdis 08/24/21 Unknown Rx Allergies Allergy/AdvReac Type Severity Reaction Status Date / Time No Known Allergies Allergy Unverified 06/04/20 22:05 ED Review of Systems ROS: Stated complaint: FOOD POISON Other details as noted in HPI Constitutional: denies: chills, fever Eyes: denies: eye pain, eye discharge, vision change ENT: denies: ear pain, throat pain Respiratory: denies: cough, shortness of breath, wheezing Cardiovascular: denies: chest pain, palpitations Endocrine: no symptoms reported Gastrointestinal: abdominal pain, nausea, vomiting. denies: diarrhea, constipation, hematemesis, melena, hematochezia Genitourinary: denies: urgency, dysuria Musculoskeletal: denies: back pain, joint swelling, arthralgia Skin: denies: rash, lesions Neurological: denies: headache, weakness, paresthesias Psychiatric: denies: anxiety, depression Hematological/Lymphatic: denies: easy bleeding, easy bruising ED Past Medical Hx - Surgical History Additional Surgical History: ear - Social History Smoking Status: Current Every Day Smoker Substance Use Type: Alcohol - Medications Home Medications: Home Medications Medication Instructions Recorded Confirmed Last Taken Type Ondansetron [Zofran ODT TAB] 8 mg PO Q8HR PRN #15 tab.rapdis 06/06/20 Unknown Rx Pantoprazole [Protonix TAB] 20 mg PO QDAY #10 tablet.dr 06/06/20 Unknown Rx Dicyclomine [Bentyl] 20 mg PO Q6H PRN #30 tablet 08/24/21 Unknown Rx Famotidine [Pepcid] 20 mg PO Q12H #30 tablet 08/24/21 Unknown Rx Ondansetron [Zofran Odt] 4 mg PO Q6HR PRN #20 tab.rapdis 08/24/21 Unknown Rx ED Physical Exam - General Limitations: Other General appearance: alert, in no apparent distress - Head Head exam: Present: atraumatic, normocephalic, normal inspection - Eye Eye exam: Present: normal appearance, PERRL, EOMI Pupils: Present: normal accommodation - ENT ENT exam: Present: normal exam, normal orophraynx, mucous membranes moist, TM's normal bilaterally, normal external ear exam - Neck Neck exam: Present: normal inspection, full ROM. Absent: tenderness - Respiratory Respiratory exam: Present: normal lung sounds bilaterally. Absent: respiratory distress, wheezes, rales, rhonchi, chest wall tenderness, accessory muscle use, decreased breath sounds, prolonged expiratory - Cardiovascular Cardiovascular Exam: Present: regular rate, normal rhythm, normal heart sounds. Absent: systolic murmur, diastolic murmur, rubs, gallop - GI/Abdominal GI/Abdominal exam: Present: soft, tenderness (Mild diffuse abdominal tenderness), normal bowel sounds. Absent: guarding, rebound, hyperactive bowel sounds, hypoactive bowel sounds, mass, bruit, pulsatile mass - Extremities Exam Extremities exam: Present: normal inspection, full ROM, normal capillary refill. Absent: tenderness, pedal edema, joint swelling, calf tenderness - Back Exam Back exam: Present: normal inspection, full ROM. Absent: tenderness, CVA tenderness (R), CVA tenderness (L), muscle spasm, paraspinal tenderness, vertebral tenderness - Neurological Exam Neurological exam: Present: alert, oriented X3, CN II-XII intact, normal gait, reflexes normal - Psychiatric Psychiatric exam: Present: normal affect, normal mood - Skin Skin exam: Present: warm, dry, intact, normal color. Absent: rash ED Course Vital Signs 08/24/21 08/24/21 01:55 04:11 Temperature 97.9 F Pulse Rate 94 H Respiratory 14 Rate Blood Pressure 118/83 O2 Sat by Pulse 97 Oximetry ED Medical Decision Making - Lab Data Result diagrams: 08/24/21 02:44 08/24/21 02:44 - Radiology Data Radiology results: report reviewed, [place] [address] Cat Scan Report Signed Patient: DORIS MILNER MR#: [id number] : 1965 Acct:[id number] Age/Sex: 56 / M ADM Date: 08/24/21 Loc: ED Attending Dr: Ordering Physician: ALLEN NGUYEN Date of Service: 08/24/21 Procedure(s): CT abdomen pelvis w con Accession Number(s): [id number] cc: ALLEN NGUYEN CT ABDOMEN AND PELVIS WITH CONTRAST INDICATION / CLINICAL INFORMATION: abdominal pain, N/V. TECHNIQUE: Axial CT images were obtained through the abdomen and pelvis after 100 cc Omnipaque [address] scans at this location are performed using CT dose reduction for ALARA by means of automated exposure control. COMPARISON: CT abdomen and pelvis 06/05/2020 FINDINGS: LOWER CHEST: Air space attenuation right middle lobe. Circumferential wall thickening of the lower esophagus. LIVER: No significant abnormality. GALLBLADDER: No significant abnormality. BILE DUCTS: No significant abnormality. SPLEEN: No significant abnormality. PANCREAS: Small 7 mm x 12 mm hypoattenuating focus within the uncinate process is stable in size compared to prior study. Pancreas otherwise unremarkable. ADRENALS: No significant abnormality. RIGHT KIDNEY / URETER: Stable appearance of posterior cortical medullary cyst noted right kidney. LEFT KIDNEY / URETER: Stable appearance of upper pole cortical medullary cyst and lower pole cortical medullary cyst. STOMACH / DUODENUM / SMALL BOWEL: Diffuse prominence of gastric mucosal folds demonstrated and irregular wall thickening of the distal gastric antrum present. COLON: No significant abnormality. APPENDIX: No significant abnormality. PERITONEUM: No free air or free fluid are present within the abdomen or pelvis. LYMPH NODES: No significant adenopathy. AORTA / ARTERIES: Mild atherosclerotic calcification without acute abnormality. IVC / VEINS: No significant abnormality. URINARY BLADDER: No significant abnormality. REPRODUCTIVE ORGANS: No significant abnormality. ADDITIONAL ABDOMINAL/PELVIC FINDINGS: None. SKELETAL SYSTEM: No significant abnormality. IMPRESSION: 1. Irregular thickening of the gastric wall particularly in the distal gastric antrum as well as prominent gastric folds. Differential considerations include gastritis and neoplasm. Correlation with EGD recommended. 2. Circumferential wall thickening of the lower esophagus. Nonspecific finding could reflect chronic reflux and/or esophagitis. 3. Airspace attenuation right middle lobe, infectious process not excluded. Signer Name: Gillian Ramirez II, MD Signed: 08/24/2021 4:51 AM Workstation Name: [id number] Transcribed By: TERRENCE Dictated By: GILLIAN RAMIREZ II, MD Electronically Authenticated By: GILLIAN RAMIREZ II, MD Signed Date/Time: 08/24/21 0451 DD/ 0446 TD/TT: - Medical Decision Making This is a 56-year-old [place] male with history of alcohol abuse who presents to the ED with complaint of acute onset persistent intractable nausea and vomiting with mild epigastric pain after eating dinner with alcohol consumption about 6 hours ago. Patient's family stated that the patient has had multiple vomiting episodes with mild epigastric pain. In the ED, patient is alert and oriented x3 and is not in any distress. Patient was treated for pain in the ED, also received antiemetics. Lab test results were reviewed and showed acute leukocytosis of 23,000. The rest of the lab test results were nonact ionable. The abdomen pelvis CT scan with contrast showed irregular thickening of the gastric wall particularly in the distal gastric antrum as well as prominent gastric folds. Differential considerations include gastritis and neoplasm. Correlation with EGD recommended. In addition, it also showed circumferential wall thickening of the lower esophagus. Nonspecific finding could reflect chronic reflux and/or esophagitis, as well as an airspace attenuation right middle lobe, infectious process not excluded. On reevaluation, patient's pain is well controlled medication. Patient also passed oral fluid challenge in the ED, and vomiting resolved with medications. Patient was therefore discharged home on medications including antiemetics antispasmodics and antacids. Patient was advised to follow-up with his primary care physician in 5 to 7 days for reevaluation or return to the ED immediately if symptoms get worse. Patient was also given a referral to the GI physician Dr. Chicas for further evaluation with endoscopy. - Differential Diagnosis Gastroenteritis; GERD; cholelithiasis; dehydration, gastritis Critical care attestation.: If time is entered above; I have spent that time in minutes in the direct care of this critically ill patient, excluding procedure time. ED Disposition Clinical Impression: Nausea and vomiting in adult patient, Viral gastroenteritis Alcoholic gastritis without bleeding Qualifiers: Chronicity: acute Qualified Code(s): K29.20 - Alcoholic gastritis without bleeding GERD (gastroesophageal reflux disease) Qualifiers: Esophagitis presence: esophagitis presence not specified Qualified Code(s): K21.9 - Gastro-esophageal reflux disease without esophagitis Disposition: 01 HOME / SELF CARE / HOMELESS Is pt being admited?: No Does the pt Need Aspirin: No Condition: Stable Instructions: Viral Gastroenteritis, Adult, [id number], Nausea and Vomiting, Adult, [id number], Gastritis, Adult, [id number], Gastroesophageal Reflux Disease, Adult, [id number] Additional Instructions: All lab test results were reviewed and are all nonactionable except for acute leukocytosis of 23,000 due to intractable nausea and vomiting due to gastritis from alcohol consumption. Abdomen pelvis CT scan showed irregular thickening of the gastric wall particularly in the distal gastric antrum as well as prominent gastric folds. Differential considerations include gastritis and neoplasm. Correlation with EGD recommended. It also showed a circumferential wall thickening of the lower esophagus. Nonspecific finding could reflect chronic reflux and/or esophagitis. In addition, it also showed a airspace attenuation right middle lobe, infectious process not excluded. Therefore maintain a clear liquid diet for 12 to 24 hours, drink plenty of fluids, take medication as advised, follow-up with your primary care physician in 7 to 10 days for reevaluation. Consider following up with a GI physician Dr. Chicas as advised in 3 to 5 days for reevaluation. Prescriptions: Dicyclomine [Bentyl] 20 mg PO Q6H PRN #30 tablet PRN Reason: Abdominal pain Famotidine [Pepcid] 20 mg PO Q12H #30 tablet Ondansetron [Zofran Odt] 4 mg PO Q6HR PRN #20 tab.rapdis PRN Reason: Nausea Referrals: [facility] [Provider Group] - 3-5 Days SEAN CHICAS MD [Staff Physician] - 3-5 Days Time of Disposition: 04:33 Print Language: TONGAN
--- NOTE | 2021-08-24 04:55 | Cat Scan Report ---
CT ABDOMEN AND PELVIS WITH CONTRAST INDICATION / CLINICAL INFORMATION: abdominal pain, N/V. TECHNIQUE: Axial CT images were obtained through the abdomen and pelvis after 100 cc Omnipaque [address] scans at this location are performed using CT dose reduction for ALARA by means of automated exposure control. COMPARISON: CT abdomen and pelvis 06/05/2020 FINDINGS: LOWER CHEST: Air space attenuation right middle lobe. Circumferential wall thickening of the lower es ophagus. LIVER: No significant abnormality. GALLBLADDER: No significant abnormality. BILE DUCTS: No significant abnormality. SPLEEN: No significant abnormality. PANCREAS: Small 7 mm x 12 mm hypoattenuating focus within the uncinate process is stable in size comp ared to prior study. Pancreas otherwise unremarkable. ADRENALS: No significant abnormality. RIGHT KIDNEY / URETER: Stable appearance of posterior cortical medullary cyst noted right kidney. LEFT KIDNEY / URETER: Stable appearance of upper pole cortical medullary cyst and lower pole cortical medullary cyst. STOMACH / DUODENUM / SMALL BOWEL: Diffuse prominence of gastric mucosal folds demonstrated and irregu lar wall thickening of the distal gastric antrum present. COLON: No significant abnormality. APPENDIX: No significant abnormality. PERITONEUM: No free air or free fluid are present within the abdomen or pelvis. LYMPH NODES: No significant adenopathy. AORTA / ARTERIES: Mild atherosclerotic calcification without acute abnormality. IVC / VEINS: No significant abnormality. URINARY BLADDER: No significant abnormality. REPRODUCTIVE ORGANS: No significant abnormality. ADDITIONAL ABDOMINAL/PELVIC FINDINGS: None. SKELETAL SYSTEM: No significant abnormality. IMPRESSION: 1. Irregular thickening of the gastric wall particularly in the distal gastric antrum as well as prom inent gastric folds. Differential considerations include gastritis and neoplasm. Correlation with EGD recommended. 2. Circumferential wall thickening of the lower esophagus. Nonspecific finding could reflect chronic reflux and/or esophagitis. 3. Airspace attenuation right middle lobe, infectious process not excluded. Signer Name: Brigido Pope II, MD Signed: 08/24/2021 4:51 AM Workstation Name: [id number]
[2021-08-24 06:18] VITALS: BP 99/78
== END 2021-08-24 06:19 | disposition home or self-care (01) ==
LOC: ED 01:40
DX: A08.4 Viral intestinal infection, unspecified (principal); R11.2 Nausea with vomiting, unspecified; K21.9 Gastro-esophageal reflux disease without esophagitis; K29.21 Alcoholic gastritis with bleeding; F17.200 Nicotine dependence, unspecified, uncomplicated
CPT/HCPCS: 36415; 74177; 80053; 84484; 85007; 85025; 96361; 96374; 96375; 96376; 99284; J2270; J2405; J3490; J7030; Q9967; Q0162